=== PATIENT | male | born 1960 | race Caucasian/White ===

== ENCOUNTER 2019-01-17 12:12 | Inpatient (IN) | payer BC, OTHER ==
[2019-01-17] MEDS ORDERED: Adacel (T-DAP) 0.5 ML SYRINGE ONE (12:28)
[2019-01-17] MEDS ORDERED: Bupivacaine 0.5% 10 ML VIAL ONE (13:15)
[2019-01-17] MEDS ORDERED: Lidocaine 1% (PF) 30 ML VIAL ONE (13:15)
--- NOTE | 2019-01-17 13:39 | RAD ---
RIGHT HAND 3 VIEWS: Date: 01/17/19 HISTORY: Trauma, right hand pain. FINDINGS/IMPRESSION: There is amputation involving a portion of the tuft of the distal phalanx of the middle finger. There is a fracture involving the ulnar aspect of the base of the distal phalanx of the index finger with extension into the articular surface with mild displacement. POS: OFF
--- NOTE | 2019-01-17 13:40 | CON ---
DATE OF CONSULTATION: 01/17/2019 CONSULT PHYSICIAN: Gerson Dobbs MD REASON FOR CONSULTATION: Right hand third digit amputation and second digit partial amputation. HISTORY OF PRESENT ILLNESS: This is a 58-year-old male, who presented to the emergency department today with complaints of a right hand skill saw injury. The patient is left-hand dominant. He reports that he had a slip with his saw and hit his fingertips on his right hand, as he was working prior to arrival. The patient brings in the fingertip of third digit in a bag. The second fingertip is still attached. He denies any numbness or tingling. Currently, at bedside. He reports some pain in the index finger, but no pain in the long finger. He is left-hand dominant. Family is present at bedside. PAST MEDICAL HISTORY: Significant for kidney cancer diagnosed 7 years ago in remission, diverticulitis. PAST SURGICAL HISTORY: Right hip replacement, left partial kidney removal due to cancer, colon resection. SOCIAL HISTORY: The patient uses dipping tobacco. Denies any smoking history. Denies any illicit drug use. Social drinker. Lives at home with family. He is retired. FAMILY HISTORY: Reviewed and noncontributory. ALLERGIES: DENIES DRUG ALLERGIES. PHYSICAL EXAMINATION: VITAL SIGNS: Blood pressure 136/81, pulse of 89, respiratory rate of 20, temperature 98.3. Pain level 2. Oxygen saturation 97% on room air. GENERAL: The patient is awake and alert. He is in no apparent distress. He is calm, although he states he is frustrated with himself for this injury. Family including and daughter currently at bedside. HEENT: Head is normocephalic, atraumatic. NECK: Supple. CHEST: Trachea midline. Breathing nonlabored. EXTREMITIES: The right upper extremity was evaluated. The patient has a complete amputation of the third digit at the DIP. This does appear to involve a portion of the middle phalanx in the distal corner. No active bleeding in this digit. Evaluation of the right hand second digit reveals a dorsal partial amputation. This appears to be approximately 50% by my exam. Nailbed is intact. Wound is just proximal to the nailbed. There is some bleeding, which is controlled with pressure. The patient does state that he is able to feel sensation on the distal tip. He is able to move the MP and the DIP in this joint. No other injuries were noted to this hand. No other injuries were noted to any other extremities. RADIOGRAPHIC FINDINGS: Including views of the right hand demonstrate an amputation of the distal phalanx of the third digit. This does appear to have also gotten the distal radial corner of the middle phalanx. Views showing the second digit appeared to have gotten the ulnar aspect of the distal phalanx proximal aspect. There is a small fracture. No other deformities or injuries or fractures are noted on x-rays. ASSESSMENT: Right hand third digit complete amputation at the DIP, right hand second digit partial amputation at the DIP involving a portion of the distal phalanx. PLAN: At this point, Hand Surgery, Dr. Riley, has been consulted, although I believe he is out of town. Dr. Dobbs and I have discussed the case. We believe that we can close the skin overlying the complete amputation at the third digit. We are hopeful to be able to keep the fingertip to the index finger. We will plan to wash this out and close this in the operating room today. The patient has been n.p.o. since 5 o'clock this morning. Risks, benefits, and alternatives were discussed at length with the patient and his family today and they verbalized understanding. They understand that there is a good chance that he may still lose his fingertip, if we are not able to save it and is not viable in the operating room. We will plan to proceed with surgery. In the meantime, the patient will be placed in a pressure dressing in the emergency department and given a block for pain relief. Job ID: [id number]
[2019-01-17] MEDS ORDERED: Dexamethasone 20 MG/5 ML VIAL ONE (13:55)
[2019-01-17] MEDS ORDERED: Ondansetron PF 4 MG/2 ML Vial ONE (13:55)
[2019-01-17] MEDS ORDERED: Lidocaine 1% PF 5 ML VIAL ONE (13:55)
[2019-01-17] MEDS ORDERED: PROPOFOL 200 MG/20 ML VIAL ONE (13:55)
[2019-01-17] MEDS ORDERED: Ketorolac Tromethamine 30 MG/ML VIAL ONE (13:55)
[2019-01-17] MEDS ORDERED: Bacitracin Zinc Ointment 30 gm TUBE ONE (18:29)
[2019-01-17] MEDS ORDERED: Bupivacaine PF 0.5% 30 ML VIAL ONE (18:29)
[2019-01-17] MEDS ORDERED: Sodium Chloride 0.9% 10 ML ONE (18:29)
[2019-01-17] MEDS ORDERED: Thrombin 5000 UNITS/5 ML VIAL ONE (18:29)
[2019-01-17 18:56] LABS: Anion Gap 13 mmol/L (10-20); BUN (Urea Nitrogen) 14 mg/dL (8.4-25.7); Calc. Creatinine Clearance 0 mL/min (70-130); Calcium 9.8 mg/dL (7.8-10.44); Carbon Dioxide 24 mmol/L (22-29); Chloride 105 mmol/L (98-107); Estimated GFR-MDRD Greater than 90; Glucose 102 mg/dL (70-105); Potassium 4.2 mmol/L (3.5-5.1); Sodium 138 mmol/L (136-145)
[2019-01-17] MEDS ORDERED: Fentanyl 100 MCG/2 ML VIAL ONE (18:59)
[2019-01-17] MEDS ORDERED: Bisacodyl 10 MG SUPP PR PRN (19:21)
[2019-01-17] MEDS ORDERED: Fentanyl 100 MCG/2 ML VIAL SLOW IVP PRN (19:21)
[2019-01-17] MEDS ORDERED: Morphine 4 MG/ML VIAL SLOW IVP PRN (19:21)
[2019-01-17] MEDS ORDERED: Acetaminophen 325 MG TAB PO PRN (19:21)
[2019-01-17] MEDS ORDERED: HYDROcodone/Acetaminophen 5/325 mg Tablet PO PRN (19:21)
[2019-01-17] MEDS ORDERED: traMADol HCl 50 MG TAB PO PRN (19:21)
[2019-01-17] MEDS ORDERED: Ondansetron PF 4 MG/2 ML Vial IV PRN (19:21)
[2019-01-17] MEDS ORDERED: Meperidine HCl/PF 25 MG/ML VIAL IM PRN (19:24)
[2019-01-17] MEDS ORDERED: Communication Order-Pharmacy FS SCH (19:30)
[2019-01-17] MEDS ORDERED: TETANUS AND DIPHTHERIA TOX/PF 0.5 ML DISP.SYRIN IM SCH (19:30)
--- NOTE | 2019-01-17 20:55 | RAD ---
INTRAOPERATIVE FLUOROSCOPY 01/17/19 HISTORY: Finger repair. COMPARISON: 01/17/19. EXPOSURE: 29.2 seconds. 0.75 mGy. FINDINGS: Two intraoperative fluoroscopic images demonstrate three wires traversing the distal and middle phala nx. Fracture lucency is demonstrated. Amputation of the second digit was noted. IMPRESSION: As above. POS: [facility]
[2019-01-17] MEDS ORDERED: PACU-Morphine 4MG/ML VIAL SLOW IVP PRN (21:35)
[2019-01-17] MEDS ORDERED: Promethazine HCl 25 MG/ML VIAL IM PRN (21:35)
[2019-01-17] MEDS ORDERED: Ondansetron HCl/PF 4 MG/2 ML Vial IVP PRN (21:35)
[2019-01-17] MEDS ORDERED: Promethazine HCl 25 MG/ML VIAL SLOW IVP PRN (21:35)
[2019-01-17] MEDS ORDERED: HYDROmorphone 2 MG/ML VIAL SLOW IVP PRN (21:35)
[2019-01-17] MEDS: Vancomycin HCl 1 GM in Premix Bag 1 BAG IVPB SCH (23:19)
[2019-01-17] MEDS: Aspirin 81 mg Enteric Coated Tablet PO SCH (23:20)
[2019-01-17] MEDS: Ketorolac Tromethamine 30 MG/ML VIAL IVP SCH (23:21)
[2019-01-18 02:07] VITALS: BMI 28.5
[2019-01-18] MEDS: Ketorolac Tromethamine 30 MG/ML VIAL IVP SCH ×3 (05:38→18:07)
--- NOTE | 2019-01-18 07:28 | OP ---
DATE OF PROCEDURE: 01/17/2019 COMPLICATIONS: None. ESTIMATED BLOOD LOSS: 20 mL. TOURNIQUET TIME: 37 minutes, found minimal contamination at the middle finger, right. PREOPERATIVE DIAGNOSES: 1. Right middle finger oblique distal phalangeal joint level amputation with small fracture. 2. Grade 2 open fracture, right index finger, distal phalanx with laceration, extensor tendon laceration, nail bed laceration. PROCEDURE PERFORMED: Right middle finger; 1. Neurectomy of the digital nerve. 2. Wound debridement down to including bone. 3. Bone debridement, material associated with open injury. 4. 3.0 cm wound closure. Right index finger; 1. Open fracture debridement, distal phalanx. 2. Wound debridement, distal phalanx. 3. Joint reduction and pinning of distal phalanx. 4. Open reduction and internal fixation of distal phalanx fracture. 5. Extensor tendon repair, zone 1, distal phalanx. 6. Nailbed repair. 7. Nail removal. 8. C-arm supervision. 9. Closure of wound 3 cm of right index finger. INDICATIONS: The patient sustained a complete amputation with denuded amputated part, string sign with most of the neurovascular bundles removed, probably twisted in the saw; both neurovascular bundles in the proximal part. Grade 2 open fracture complex repair of right index finger base with oblique fracture more ulnar aspect than radial bone injury and tendon injury more radial than ulnar, complex nailbed laceration as well. DESCRIPTION OF PROCEDURE: After successful general endotracheal anesthesia, the limb was prepped and draped. The patient then had the wound inspected, gross removal of small amount of debris from the open middle finger amputation visualized. There was some bone where there was small fracture and chondral surface was gone on one chondral aspect and on the other chondral aspect, chondral surface completely intact. There was a small remnant of the collateral ligament origin from the neck of the middle phalanx and this was excised with a [place] blade. We then finished the debridement, removed approximately 0.5 mm of bone, made it smooth with a rasp on the radial aspect maintaining chondral surface on the ulnar aspect of the middle finger. Now, we finished debriding the material associated with open fracture, debridement of the bone and the wound, we prepared for irrigation. The debridements have been caused using the following instrumentations: 1. [place] blade, 11 blade knife, tenotomy scissors, pickups, curette. 2. Excisional technique. 3. The depth was down to include bone and remnant of the joint and indeed there was minimal contamination. The same technique was then used to debride the bone and material associated with open fracture in the left index finger that was approached first. We extended the dorsal incision of ulna, where both neurovascular bundles were uninvolved, proximally about 1.5 cm exposing the entire extensor tendon and found that there was a laceration approximately 8 mm on the radial side and on the dorsal side there was a fracture with tendon still intact and this involved the dorsal and radial 1/2 of the intra-articular portion of the base of distal phalanx. We debrided all material associated with open fracture using the same techniques and instrumentation and depth as for the middle finger, and then, we saw the extensor mechanism was torn completely, so we stabilized the joint with 5 degrees hyperextension with 2 K-wires conversion to 0.035. When we saw we had excellent fixation, we then noticed there was still not complete alignment of the fragment, so I put the K-wire from radial to ulna slightly palmar to the K-wires used to stabilize the distal phalangeal joint. We then repaired the radial 1/2 of the extensor tendon with interrupted [id number] 4-0 prolene, then we finished the open reduction and internal fixation by break was intact and nearly anatomic. Then, three 0.045 K-wires were used to achieve and maintain this interval. Now, the extensor tendon repair was finished not with Prolene, but with several 4-0 chromic after removing the nail bed and realizing that the permanent suture might cause more permanent damage and the resorbing one would not. Now, we had a nail bed repair, tendon repair, the fracture had been irrigated and debrided, and open reduction and internal fixation of fracture fragments and the joint was stabilized. Now, we turned our attention after we visualized this all in the C-arm after removing the nail to close the 3 cm wound, it was complex, jagged. We debrided the wound edges with a tenotomy scissor. This is down to, but not including the deep dermis. We then placed the patient and then deflated the tourniquet. We finished repairing the nail bed with 5-0 chromic, cut a piece of the nail, obtained hemostasis, placed this piece of the nail under the eponychial nail fold to help facilitate nail regrowth and placed bacitracin and Adaptic onto this nail at the nail fold. We finished the wound closure with 4-0 nylon interrupted simple pattern, the digits were pink as was the portion of the palmar and dorsal closure of the middle finger. Bacitracin and Adaptic were placed in each spot with a xnxcoh-br-xwcye finger gauze and a Ford to hold it on in place. A palmar splint was applied with application of a short-arm splint up to the level of the nail bed distal phalanx tip and we held it with gently applied Baljinder wrap. The patient then left the operating room without evidence of anesthetic or operative complications. Job ID: [id number]
[2019-01-18] MEDS: Vancomycin HCl 1 GM in Premix Bag 1 BAG IVPB SCH (09:02)
[2019-01-18] MEDS: Aspirin 81 mg Enteric Coated Tablet PO SCH (09:02)
--- NOTE | 2019-01-18 13:03 | EKG ---
Test Reason : Blood Pressure : / mmHG Vent. Rate : 062 BPM Atrial Rate : 062 BPM P-R Int : 208 ms QRS Dur : 082 ms QT Int : 452 ms P-R-T Axes : 060 -29 023 degrees QTc Int : 458 ms Normal sinus rhythm Normal ECG Confirmed by BOUCHRA CAMP ([id number]) on 01/18/2019 1:03:35 PM Referred By: Confirmed By:BOUCHRA CAMP
--- NOTE | 2019-01-18 14:36 | HP ---
Job ID: [id number]
[2019-01-18 15:49] VITALS: BP 110/56; TEMP 97.7
== END 2019-01-18 18:34 | disposition home or self-care (01) | DRG 906 ==
LOC: SDC 12:12 → ERS 12:12 → SDC/OP 19:46 → SURG A 21:59
PROVIDERS: ADMIT Orthopaedic Surgery Hand Surgery; ATTEND Orthopaedic Surgery Hand Surgery
PROC: 0PST04Z Reposition Right Finger Phalanx with Internal Fixation Device, Open Approach (ICD-10-PCS; principal; 2019-01-17)
PROC: 0LQ70ZZ Repair Right Hand Tendon, Open Approach (ICD-10-PCS; 2019-01-17)
PROC: 01B60ZZ Excision of Radial Nerve, Open Approach (ICD-10-PCS; 2019-01-17)
DX: S68.612A Complete traumatic transphalangeal amputation of right middle finger, initial encounter (principal); S66.320A Laceration of extensor muscle, fascia and tendon of right index finger at wrist and hand level, initial encounter; S68.620A Partial traumatic transphalangeal amputation of right index finger, initial encounter; Z85.528 Personal history of other malignant neoplasm of kidney; Z90.5 Acquired absence of kidney; Z72.0 Tobacco use; W31.2XXA Contact with powered woodworking and forming machines, initial encounter
CPT/HCPCS: 76000; 80048; 90715; 93005; 93010; J1100; J1885; J2001; J2405; J2704; J3010; J3370; J3490; S0020

== ENCOUNTER 2023-02-03 17:38 | Inpatient (IN) | payer BC ==
[2023-02-03] MEDS ORDERED: Ondansetron PF 4 MG/2 ML Vial IVP PRN (20:57)
[2023-02-03] MEDS ORDERED: Sodium Chloride 0.9% 1,000 ML IV SCH (21:00)
[2023-02-03] MEDS ORDERED: Morphine 4 MG/ML VIAL SLOW IVP PRN (21:01)
[2023-02-03] MEDS ORDERED: Piperacillin/Tazobactam 3.375 GM in Sodium Chloride 0.9% 100 ML IVPB SCH (21:30)
[2023-02-03 22:00] LABS: #Lymphocytes 0.7 thou/uL (1.20-3.40); #Monocytes 1.2 thou/uL (0.11-0.59); #Neutrophils 11.2 thou/uL (1.40-6.50); %Eosinophils 0.1 % (0.0-10.0); %Monocytes 9.3 % (0.0-10.0); %Neutrophils 85.5 % (42.0-75.0); Hemoglobin 14.4 g/dL (14.0-18.0); Mean Corpuscular HGB CONC 35.2 g/dL (32.0-36.0); Mean Corpuscular Hemoglobin 33.2 pg (27.0-31.0); Mean Corpuscular Volume 94.4 fl (78.0-98.0); Platelet Count 194 10x3/uL (130-400); RBC Distribution Width 11.7 % (11.5-14.5); Red Blood Cell (RBC) Count 4.35 mill/uL (4.70-6.10); White Blood Cell (WBC) Count 13.1 10x3/uL (4.8-10.8)
[2023-02-03 22:15] LABS: Lactic Acid 1.1 mmol/L (0.5-2.2)
[2023-02-03 22:24] LABS: ALT (SGPT) 282 U/L (8-55); AST (SGOT) 520 U/L (5-34); Albumin 3.9 g/dL (3.4-4.8); Alkaline Phosphatase 178 U/L (40-110); Anion Gap 15 mmol/L (10-20); BUN (Urea Nitrogen) 12 mg/dL (8.4-25.7); Bilirubin, Total 5.5 mg/dL (0.2-1.2); Calc. Creatinine Clearance 156 mL/min (70-130); Calcium 8.8 mg/dL (7.8-10.44); Carbon Dioxide 21 mmol/L (23-31); Chloride 104 mmol/L (98-107); Estimated GFR 103; Globulin 2.2 g/dL (2.4-3.5); Glucose 118 mg/dL (80-115); Lipase 524 U/L (8-78); Potassium 3.7 mmol/L (3.5-5.1); Protein, Total 6.1 g/dL (5.8-8.1); Sodium 136 mmol/L (136-145)
[2023-02-04 00:02] LABS: SARS-CoV-2 NAA Rapid Test Not Detected (NotDetected)
[2023-02-04] MEDS: Sodium Chloride 0.9% 1,000 ML IV SCH ×4 (00:56→16:20)
[2023-02-04] MEDS: Piperacillin/Tazobactam 3.375 GM in Sodium Chloride 0.9% 100 ML IVPB SCH ×3 (04:17→20:57)
[2023-02-04] MEDS: Acetaminophen 325 MG TAB PO PRN ×2 (04:44→10:52)
[2023-02-04 08:49] LABS: ALT (SGPT) 254 U/L (8-55); AST (SGOT) 294 U/L (5-34); Albumin 3.8 g/dL (3.4-4.8); Alkaline Phosphatase 161 U/L (40-110); Anion Gap 10 mmol/L (10-20); BUN (Urea Nitrogen) 10 mg/dL (8.4-25.7); Bilirubin, Total 7.8 mg/dL (0.2-1.2); Calc. Creatinine Clearance 154 mL/min (70-130); Calcium 8.7 mg/dL (7.8-10.44); Carbon Dioxide 24 mmol/L (23-31); Chloride 105 mmol/L (98-107); Estimated GFR 102; Globulin 2.2 g/dL (2.4-3.5); Glucose 98 mg/dL (80-115); Magnesium 1.8 mg/dL (1.6-2.6); Potassium 3.9 mmol/L (3.5-5.1); Sodium 135 mmol/L (136-145)
[2023-02-04 08:57] LABS: %Eosinophils 0.2 % (0.0-10.0); RBC Distribution Width 11.9 % (11.5-14.5); White Blood Cell (WBC) Count 10.7 10x3/uL (4.8-10.8)
[2023-02-04 09:07] LABS: #Lymphocytes 0.5 thou/uL (1.20-3.40); #Monocytes 0.9 thou/uL (0.11-0.59); #Neutrophils 9.3 thou/uL (1.40-6.50); %Lymphocytes 4.5 % (21.0-51.0); %Monocytes 8.5 % (0.0-10.0); %Neutrophils 86.8 % (42.0-75.0); Hemoglobin 13.9 g/dL (14.0-18.0); Mean Corpuscular HGB CONC 34.4 g/dL (32.0-36.0); Mean Corpuscular Volume 96.1 fl (78.0-98.0); Mean Platelet Volume 8.5 fL (7.4-10.4); Platelet Count 182 10x3/uL (130-400)
[2023-02-04] MEDS ORDERED: Acetaminophen 500 MG TAB PO PRN (10:58)
[2023-02-04 12:52] LABS: INR-International Normal Ratio 1.3; PTT 30.9 sec (22.9-36.1); Prothrombin Time 17.2 sec (12.0-14.7)
[2023-02-04] MEDS ORDERED: PROPOFOL 200 MG/20 ML VIAL ONE (13:25)
[2023-02-04] MEDS ORDERED: Dexamethasone 20 MG/5 ML VIAL ONE (13:25)
[2023-02-04] MEDS ORDERED: Ondansetron PF 4 MG/2 ML Vial ONE (13:25)
[2023-02-04] MEDS ORDERED: Ketorolac Tromethamine 30 MG/ML VIAL ONE (13:25)
[2023-02-04] MEDS ORDERED: Rocuronium Bromide 10 MG/ML (10ML VIAL) ONE (13:25)
[2023-02-04] MEDS ORDERED: Iopamidol 30 ML ONE (14:11)
[2023-02-04] MEDS ORDERED: Lidocaine 2% PF 5 ML VIAL ONE (14:11)
[2023-02-04] MEDS ORDERED: Bupivacaine/Epinephrine 0.25% 30 ML VIAL ONE (14:11)
[2023-02-04] MEDS ORDERED: Fentanyl 250 MCG/5 ML VIAL ONE (14:13)
[2023-02-04] MEDS ORDERED: HYDROcodone/Acetaminophen 7.5/325 mg Tablet PO PRN (15:45)
[2023-02-04] MEDS ORDERED: Ondansetron HCl/PF 4 MG/2 ML Vial IVP PRN (15:56)
[2023-02-05] MEDS: Piperacillin/Tazobactam 3.375 GM in Sodium Chloride 0.9% 100 ML IVPB SCH (03:42)
[2023-02-05] MEDS: Sodium Chloride 0.9% 1,000 ML IV SCH (05:58)
[2023-02-05 06:47] LABS: #Basophils 0.1 thou/uL (0.0-0.2); #Lymphocytes 0.6 thou/uL (1.20-3.40); #Monocytes 0.9 thou/uL (0.11-0.59); #Neutrophils 6.7 thou/uL (1.40-6.50); %Basophils 0.7 % (0.0-1.0); %Eosinophils 0.1 % (0.0-10.0); %Lymphocytes 7.7 % (21.0-51.0); %Monocytes 11.1 % (0.0-10.0); %Neutrophils 80.4 % (42.0-75.0); Hemoglobin 12.9 g/dL (14.0-18.0); Mean Corpuscular HGB CONC 35.4 g/dL (32.0-36.0); Mean Corpuscular Hemoglobin 33.9 pg (27.0-31.0); Mean Corpuscular Volume 95.7 fl (78.0-98.0); Mean Platelet Volume 8.9 fL (7.4-10.4); Platelet Count 142 10x3/uL (130-400); RBC Distribution Width 11.9 % (11.5-14.5); Red Blood Cell (RBC) Count 3.81 mill/uL (4.70-6.10); White Blood Cell (WBC) Count 8.3 10x3/uL (4.8-10.8)
[2023-02-05 07:06] LABS: ALT (SGPT) 155 U/L (8-55); AST (SGOT) 99 U/L (5-34); Albumin 3.3 g/dL (3.4-4.8); Alkaline Phosphatase 122 U/L (40-110); Anion Gap 12 mmol/L (10-20); BUN (Urea Nitrogen) 12 mg/dL (8.4-25.7); Bilirubin, Total 6.2 mg/dL (0.2-1.2); Calc. Creatinine Clearance 146 mL/min (70-130); Calcium 8.8 mg/dL (7.8-10.44); Carbon Dioxide 23 mmol/L (23-31); Chloride 108 mmol/L (98-107); Estimated GFR 101; Globulin 2.4 g/dL (2.4-3.5); Glucose 160 mg/dL (80-115); Potassium 4.3 mmol/L (3.5-5.1); Protein, Total 5.7 g/dL (5.8-8.1); Sodium 139 mmol/L (136-145)
[2023-02-05] MEDS ORDERED: HYDROcodone/Acetaminophen 5/325 mg Tablet PO PRN (08:08)
[2023-02-05] MEDS ORDERED: Ibuprofen 600 MG TAB PO PRN (08:09)
[2023-02-05 08:41] VITALS: BP 126/69; TEMP 98.3
== END 2023-02-05 11:30 | disposition home or self-care (01) | DRG 417 ==
LOC: SURG A 17:38
PROVIDERS: ADMIT Internal Medicine; ATTEND Family Medicine
PROC: 0FT44ZZ Resection of Gallbladder, Percutaneous Endoscopic Approach (ICD-10-PCS; principal; 2023-02-04)
PROC: BF10YZZ Fluoroscopy of Bile Ducts using Other Contrast (ICD-10-PCS; 2023-02-04)
DX: K81.0 Acute cholecystitis (principal); K85.90 Acute pancreatitis without necrosis or infection, unspecified; I50.32 Chronic diastolic (congestive) heart failure; K21.9 Gastro-esophageal reflux disease without esophagitis; N40.0 Benign prostatic hyperplasia without lower urinary tract symptoms; Z87.891 Personal history of nicotine dependence; Z79.82 Long term (current) use of aspirin; Z88.1 Allergy status to other antibiotic agents
CPT/HCPCS: 36415; 47532; 80053; 83605; 83690; 83735; 85025; 85610; 85730; 87040; C1889; J1100; J1885; J2001; J2405; J2543; J2704; J3010; J3490; J7050; Q9967; U0002